=== PATIENT | female | born 1995 | race Caucasian/White ===

== ENCOUNTER 2017-03-23 15:02 | Emergency (ER) | payer OTHER ==
[~2017-03-23 15:02] MED LIST: ALBUTEROL17 G1 IH; ALBUTEROL17 GM INH; AMOXICILLIN PO; AMOXICILLIN875 MG PO; BACTRIM DS TABL1 TA1 PO; BENZONATATE PO; BUSPAR PO; CIPROFLOXACIN500 M1 PO; DIFLUCAN PO; DOXYCYCLINE HY100 M1 PO; DOXYCYCLINE150 MG PO; ERYTHROMYCIN O3.5 GM OS; FAMOTIDINE PO; FLAGYL PO; FLEXERIL10 MG PO; HYDROCODON-ACE1 EAC5 PO; IBUPROFEN100 MG/52 PO; IBUPROFEN600 MG PO; IBUPROFEN800 MG PO; KEFLEX500 MG PO; LEXAPRO; LEXAPRO PO; LEXAPRO20 MG PO; LORTAB 5/500 TA1 TA1 PO; NAPROXEN250 MG PO; PHENERGAN PO; PHENERGAN12.5 MG DOB; PHENERGAN25 MG PO; PREDNISONE PO; PRENA1 CHEW TABL1 MG; PRENATAL VITAMI1 TA3 PO; PROMETHAZI6.25 MG/5 PO; PROZAC PO; ROBAXIN PO; ROBITUSSIN A-C S5 ML PO; SEROQUEL25 MG PO; SEROQUEL50 MG PO; SUBUTEX; SUBUTEX2 MG SL; TAMIFLU75 M1 PO; ULTRAM PO; VOLTAREN5 ML; VOLTAREN5 ML PO; VOLTAREN75 MG PO; ZITHROMAX PO; ZITHROMAX1 G/PKT PO; ZOFRAN PO; ZYRTEC-D T1 TAB.SR . PO
[2017-03-23] MEDS ORDERED: ZOLOFT (15:03)
[2017-03-23] MEDS ORDERED: PRENATAL VITAM1 EAC1 (15:04)
== END 2017-03-23 15:55 | disposition home or self-care (01) ==
LOC: SED 15:02
DX: O99.713 Diseases of the skin and subcutaneous tissue complicating pregnancy, third trimester (principal); L05.91 Pilonidal cyst without abscess; O99.513 Diseases of the respiratory system complicating pregnancy, third trimester; J45.909 Unspecified asthma, uncomplicated; O99.343 Other mental disorders complicating pregnancy, third trimester; F41.9 Anxiety disorder, unspecified; F32.9 Major depressive disorder, single episode, unspecified; O99.333 Smoking (tobacco) complicating pregnancy, third trimester; F17.210 Nicotine dependence, cigarettes, uncomplicated; Z79.899 Other long term (current) drug therapy
CPT/HCPCS: 99282